=== PATIENT | female | born 1945 | race Caucasian/White ===

== ENCOUNTER 2016-11-12 01:42 | Observation (INO) | payer MEDICARE ==
--- NOTE | 2016-11-12 02:20 | ED ---
General Adult HPI - General Chief complaint: Syncope Stated complaint: Syncope Time Seen by Provider: 11/12/16 02:08 Source: patient, RN notes reviewed Mode of arrival: EMS Limitations: no limitations - History of Present Illness Initial comments: Patient is a pleasant 70-year-old female presenting to the emergency department following a syncopal episode. Episode occurred prior to arrival. Patient was dizzy when she got up from bed. Patient went to the bathroom to urinate. Patient believes she passed out while urinating. Patient states she's not felt well for the past several days. Patient has had some mild headaches. Patient has felt nauseated and fatigued. Patient has had diffuse body pains. Patient denies fever. Patient complains of anxiety. - Related Data Home Medications Medication Instructions Recorded Confirmed No Known Home Medications [No 11/12/16 11/12/16 Known Home Medications] Allergies Allergy/AdvReac Type Severity Reaction Status Date / Time No Known Allergies Allergy Verified 11/12/16 02:21 Review of Systems ROS Statement: Those systems with pertinent positive or pertinent negative responses have been documented in the HPI. ROS Other: All systems not noted in ROS Statement are negative. Constitutional: Denies: fever Eyes: Denies: eye pain ENT: Denies: ear pain Respiratory: Denies: cough, dyspnea Cardiovascular: Denies: chest pain, palpitations Endocrine: Reports: fatigue Gastrointestinal: Reports: nausea. Denies: abdominal pain, vomiting Genitourinary: Denies: dysuria Musculoskeletal: Denies: back pain Skin: Denies: rash Neurological: Reports: headache Psychiatric: Reports: anxiety Past Medical History Past Medical History: Seizure Disorder History of Any Multi-Drug Resistant Organisms: None Reported Past Surgical History: Hysterectomy Additional Past Surgical History / Comment(s): ganglion cyst left wrist Past Psychological History: No Psychological Hx Reported Smoking Status: Never smoker Past Alcohol Use History: None Reported Past Drug Use History: None Reported General Exam Limitations: no limitations General appearance: alert, in no apparent distress Head exam: Present: other (Right frontal ecchymosis) Eye exam: Present: normal appearance, PERRL, EOMI ENT exam: Present: normal oropharynx Neck exam: Present: tenderness (Mild diffuse tenderness) Respiratory exam: Present: normal lung sounds bilaterally Cardiovascular Exam: Present: regular rate, normal rhythm Expanded Peripheral pulses: 2+: Radial (R), Radial (L), Dorsalis Pedis (R), Dorsalis Pedis (L) GI/Abdominal exam: Present: soft. Absent: tenderness Extremities exam: Present: normal inspection, full ROM. Absent: tenderness Neurological exam: Present: alert, oriented X3, CN II-XII intact. Absent: motor sensory deficit Expanded Speech: Present: fluid speech Cranial nerves: EOM's Intact: Normal Sensory exam: Upper Extremity Light Touch: Normal, Lower Extremity Light Touch: Normal Motor strength exam: RUE: 5, LUE: 5, RLE: 5, LLE: 5 Eye Response: (4) open spontaneously Motor Response: (6) obeys commands Verbal Response: (5) oriented Psychiatric exam: Present: normal affect, normal mood Skin exam: Absent: rash Course Vital Signs 11/12/16 11/12/16 11/12/16 01:50 02:50 03:01 Temperature 98.8 F 98.7 F Pulse Rate 89 87 68 Respiratory 16 16 16 Rate Blood Pressure 152/76 136/64 117/61 O2 Sat by Pulse 99 98 97 Oximetry 11/12/16 11/12/16 04:01 05:45 Temperature Pulse Rate 75 75 Respiratory 16 16 Rate Blood Pressure 132/64 114/70 O2 Sat by Pulse 96 94 L Oximetry EKG Findings - EKG Comments: EKG Findings:: Normal sinus rhythm at 84. Normal intervals. Normal axis. Normal QRS. Normal ST-T. Medical Decision Making - Medical Decision Making Patient reevaluated and resting comfortably in bed. Patient and family updated on results and plan. Case was discussed in detail with practitioner Faith brown , who will admit for Dr. Palacios, for hospital call. - Lab Data Result diagrams: 11/12/16 02:07 11/12/16 05:43 Lab Results 11/12/16 11/12/16 11/12/16 Range/Units 02:07 02:25 05:43 WBC 4.3 (3.8-10.6) k/uL RBC 4.35 (3.80-5.40) m/uL Hgb 14.0 (11.4-16.0) gm/dL Hct 42.2 (34.0-46.0) % MCV 97.1 (80.0-100.0) fL MCH 32.1 (25.0-35.0) pg MCHC 33.1 (31.0-37.0) g/dL RDW 12.9 (11.5-15.5) % Plt Count 126 L (150-450) k/uL Neutrophils % (Manual) 72.0 % Lymphocytes % (Manual) 11.0 % Monocytes % (Manual) 16.0 % Eosinophils % (Manual) 1.0 % Neutrophils # (Manual) 3.1 (1.3-7.7) k/uL Lymphocytes # (Manual) 0.5 L (1.0-4.8) k/uL Monocytes # (Manual) 0.7 (0-1.0) k/uL Eosinophils # (Manual) 0.0 (0-0.7) k/uL Nucleated RBCs 0 (0-0) /100 WBC Manual Slide Review Performed PT 11.9 (9.0-12.0) sec INR 1.2 (<1.1) APTT 22.4 (22.0-30.0) sec Sodium (137-145) mmol/L Potassium (3.5-5.1) mmol/L Chloride (98-107) mmol/L Carbon Dioxide (22-30) mmol/L Anion Gap mmol/L BUN (7-17) mg/dL Creatinine (0.52-1.04) mg/dL Est GFR (MDRD) Af Amer (>60 ml/min/1.73 sqM) Est GFR (MDRD) Non-Af (>60 ml/min/1.73 sqM) Glucose (74-99) mg/dL POC Glucose (mg/dL) 166 H (75-99) mg/dL POC Glu Trash Man ID Pablo Hicks Calcium (8.4-10.2) mg/dL Magnesium (1.6-2.3) mg/dL Total Bilirubin (0.2-1.3) mg/dL AST (14-36) U/L ALT (9-52) U/L Alkaline Phosphatase (38-126) U/L Total Creatine Kinase (30-135) U/L CK-MB (CK-2) (0.0-2.4) ng/mL CK-MB (CK-2) Rel Index Troponin I (0.000-0.034) ng/mL Total Protein (6.3-8.2) g/dL Albumin (3.5-5.0) g/dL 11/12/16 11/12/16 Range/Units 05:43 05:43 WBC (3.8-10.6) k/uL RBC (3.80-5.40) m/uL Hgb (11.4-16.0) gm/dL Hct (34.0-46.0) % MCV (80.0-100.0) fL MCH (25.0-35.0) pg MCHC (31.0-37.0) g/dL RDW (11.5-15.5) % Plt Count (150-450) k/uL Neutrophils % (Manual) % Lymphocytes % (Manual) % Monocytes % (Manual) % Eosinophils % (Manual) % Neutrophils # (Manual) (1.3-7.7) k/uL Lymphocytes # (Manual) (1.0-4.8) k/uL Monocytes # (Manual) (0-1.0) k/uL Eosinophils # (Manual) (0-0.7) k/uL Nucleated RBCs (0-0) /100 WBC Manual Slide Review PT (9.0-12.0) sec INR (<1.1) APTT (22.0-30.0) sec Sodium 136 L (137-145) mmol/L Potassium 4.3 (3.5-5.1) mmol/L Chloride 103 (98-107) mmol/L Carbon Dioxide 25 (22-30) mmol/L Anion Gap 8 mmol/L BUN 12 (7-17) mg/dL Creatinine 0.70 (0.52-1.04) mg/dL Est GFR (MDRD) Af Amer >60 (>60 ml/min/1.73 sqM) Est GFR (MDRD) Non-Af >60 (>60 ml/min/1.73 sqM) Glucose 137 H (74-99) mg/dL POC Glucose (mg/dL) (75-99) mg/dL POC Glu Trash Man ID Calcium 9.3 (8.4-10.2) mg/dL Magnesium 1.9 (1.6-2.3) mg/dL Total Bilirubin 0.5 (0.2-1.3) mg/dL AST 22 (14-36) U/L ALT 33 (9-52) U/L Alkaline Phosphatase 76 (38-126) U/L Total Creatine Kinase 110 (30-135) U/L CK-MB (CK-2) 0.7 (0.0-2.4) ng/mL CK-MB (CK-2) Rel Index 0.6 Troponin I <0.012 (0.000-0.034) ng/mL Total Protein 6.9 (6.3-8.2) g/dL Albumin 3.8 (3.5-5.0) g/dL - Radiology Data Radiology results: image reviewed (Computed tomography scan of the brain and cervical spine show no acute findings. Two-view chest x-ray shows no acute process.) Disposition Clinical Impression: Syncope Disposition: ADMITTED IP TO THIS HOSP
[2016-11-12 02:28] LABS: Glucose,Whole Blood 166 mg/dL (75-99)
[2016-11-12 02:28] LABS: Aty Lym Flag Slight; CH 32.1; CHCM 33.2; HCT 42.2 % (34.0-46.0); HDW 2.24; MCH 32.1 pg (25.0-35.0); MCHC 33.1 g/dL (31.0-37.0); MCV 97.1 fL (80.0-100.0); Mean Platelet Volume 8.9; RBC 4.35 m/uL (3.80-5.40); RDW 12.9 % (11.5-15.5); WBC 4.3 k/uL (3.8-10.6); WBC (Perox) 4.56
[2016-11-12 02:43] LABS: Add Differential Manual Differential
[2016-11-12 02:46] LABS: Manual Review Performed; Nucleated Red Blood Cells 0 /100 WBC (0-0); Total Cells Counted 100
[2016-11-12] MEDS ORDERED: ONDANSETRON 4 MG/2 ML VIAL IVP STA (02:48)
--- NOTE | 2016-11-12 02:56 | CT ---
EXAM: CT Head Without Intravenous Contrast. CLINICAL HISTORY: Reason: syncope TECHNIQUE: Axial computed tomography images of the head/brain without intravenous contrast. CTDI is 60.3 mGy and DLP is 1144.7 mGy-cm COMPARISON: None FINDINGS: Brain: No evidence of acute infarct, hemorrhage, mass or edema. No significant white matter disease. Ventricles: Unremarkable. No ventriculomegaly. Bones/joints: Unremarkable. No acute fracture. Soft tissues: Unremarkable. Sinuses: Unremarkable as visualized. No acute sinusitis. Mastoid air cells: Unremarkable as visualized. No mastoid effusion. IMPRESSION: No acute findings. EXAM: CT Cervical Spine Without Intravenous Contrast. CLINICAL HISTORY: Reason: syncope TECHNIQUE: Axial computed tomography images of the cervical spine without intravenous contrast. CTDI is 60.3 mGy and DLP is 1144.7 mGy-cm COMPARISON: None FINDINGS: Vertebrae: No evidence of fracture or traumatic malalignment of the cervical spine. Discs/spinal canal/neural foramina: Multilevel degenerative changes with moderate bilateral neural frontal stenosis at C3-4, C4-5, and C5-6. Mild to moderate spinal canal stenosis at C4-5 and C5-6 secondary to spondylosis. Soft tissues: Unremarkable. Lung apices: Unremarkable as visualized. IMPRESSION: No acute findings.
--- NOTE | 2016-11-12 04:36 | XR ---
EXAM: XR Chest, 2 Views. CLINICAL HISTORY: Reason: syncope TECHNIQUE: Frontal and lateral views of the chest. COMPARISON: No relevant prior studies available. FINDINGS: Lungs: Unremarkable. No consolidation. Pleural space: Unremarkable. No pneumothorax. Heart: Mildly prominent cardiomediastinal silhouette. Mediastinum: See above. Bones/joints: Degenerative changes of the osseous structures. IMPRESSION: No acute findings.
[2016-11-12 05:58] LABS: INR 1.2 (<1.1); Partial Thromboplastin Time 22.4 sec (22.0-30.0); Prothrombin Time 11.9 sec (9.0-12.0)
[2016-11-12 06:02] LABS: ALT 33 U/L (9-52); AST 22 U/L (14-36); Alkaline Phosphatase 76 U/L (38-126); Anion Gap 8 mmol/L; Blood Urea Nitrogen 12 mg/dL (7-17); Calcium 9.3 mg/dL (8.4-10.2); Carbon Dioxide 25 mmol/L (22-30); Chloride 103 mmol/L (98-107); Glucose 137 mg/dL (74-99); Magnesium 1.9 mg/dL (1.6-2.3); Non-African American GFR(MDRD) >60 (>60 ml/min/1.73 sqM); Potassium 4.3 mmol/L (3.5-5.1); Sodium 136 mmol/L (137-145); Total Bilirubin 0.5 mg/dL (0.2-1.3); Total Protein 6.9 g/dL (6.3-8.2)
[2016-11-12 06:08] LABS: Creatine Kinase 110 U/L (30-135)
[2016-11-12 06:21] LABS: Creatine Kinase MB 0.7 ng/mL (0.0-2.4); Troponin I <0.012 ng/mL (0.000-0.034)
[2016-11-12] MEDS ORDERED: NALOXONE 0.4 MG/ML 1 ML VIAL IV PRN (06:34)
[2016-11-12 06:35] LABS: Appearance,Urine Clear (Clear); Bilirubin,Urine Negative (Negative); Glucose,Urine (UA) Negative (Negative); Ketones,Urine 2+ (Negative); Leukocyte Esterase,Urine Negative (Negative); Mucus,Urine Few /hpf; Nitrite,Urine Negative (Negative); PH, Urine 5.5 (5.0-8.0); Particle Count 4954; Protein,Urine 1+ (Negative); RBC,Urine 3 /hpf (0-5); Specific Gravity,Urine 1.014 (1.001-1.035); UA Billing (MACRO vs. MICRO) MICRO; Urobilinogen,Urine <2.0 mg/dL (<2.0); WBC,Urine 2 /hpf (0-5)
[2016-11-12] MEDS ORDERED: SODIUM CHLORIDE 0.9% 1,000 ML IV SCH ×2 (06:45→10:30)
--- NOTE | 2016-11-12 10:58 | ECHOF ---
Referral Reason:syncope MEASUREMENTS -------- HEIGHT: 165.1 cm WEIGHT: 72.6 kg BP: RVIDd: 2.4 cm (< 3.3) IVSd: 1.0 cm (0.6 - 1.1) LVIDd: 4.6 cm (3.9 - 5.3) LVPWd: 1.0 cm (0.6 - 1.1) IVSs: 1.2 cm LVIDs: 4.2 cm LVPWs: 1.5 cm LAESV Index (A-L): 35.77 ml/m Ao Diam: 2.9 cm (2.0 - 3.7) AV Cusp: 1.3 cm (1.5 - 2.6) LA Diam: 3.4 cm (2.7 - 3.8) MV EXCURSION: 20.347 mm (> 18.000) MV EF SLOPE: 79 mm/s (70 - 150) EPSS: 0.8 cm MV E Mani: 0.63 m/s MV DecT: 170 ms MV A Mani: 0.80 m/s MV E/A Ratio: 0.79 AV maxP.24 mmHg AV meanP.52 mmHg RAP: 5.00 mmHg RVSP: 25.96 mmHg FINDINGS -------- Sinus rhythm. This was a technically adequate study. There is mild concentric left ventricular hypertrophy. Overall left ventricular systolic function is low-normal with, an EF between 50 - 55 %. The right ventricle is normal in size. LA is severely dilated >40 ml/m2 The right atrial size is normal. Aneurysmal Interatrial septum. Possible PFO Peak/mean gradient across the Aortic Valve is 21.24mmHg / 9.52mmHg. Vegetation Noted on AOV. Isbt-al-xounzfih mitral regurgitation is present. Mild prolapse of the posterior mitral valve leaflet. Mild tricuspid regurgitation present. There is no evidence of pulmonary hypertension. The right ventricular systolic pressure, as measured by Doppler, is 25.96mmHg. There is no pulmonic regurgitation present. The aortic root size is normal. CONCLUSIONS -------- 1. There is mild concentric left ventricular hypertrophy. 2. Mild tricuspid regurgitation present. 3. There is no evidence of pulmonary hypertension. 4. The right ventricular systolic pressure, as measured by Doppler, is 25.96mmHg. 5. There is no pulmonic regurgitation present. 6. Overall left ventricular systolic function is low-normal with, an EF between 50 - 55 %. 7. LA is severely dilated >40 ml/m2 8. Aneurysmal Interatrial septum. 9. Possible PFO 10. Peak/mean gradient across the Aortic Valve is 21.24mmHg / 9.52mmHg. 11. Vegetation Noted on AOV. 12. Ljfq-xf-kxfvoldl mitral regurgitation is present. 13. Mild prolapse of the posterior mitral valve leaflet. DORMITORY SUPERVISOR: Kirstin Lovelace RDCS
--- NOTE | 2016-11-12 11:26 | CONS ---
DATE OF CONSULTATION: Mrs. Pina is a 70-year-old female who is seen for the cardiac evaluation. The emergency room records reviewed. Patient gives a history that she had not been feeling well for the last couple of days. She has been generally feeling weak and patient has been having some diffuse body pains. Patient woke up last night from the bed, went to the bathroom and while urinating she probably passed out. She did not have any nausea, vomiting or sweating. Patient denies any history of prior myocardial infarction. Patient denies any history of diabetes or hypertension. She is physically active. Past medical history includes history of hysterectomy, history of seizure disorder. Patient's medications include aspirin. Review of systems is otherwise unremarkable. In the emergency room, the patient's initial blood pressure was 152/76 mmHg. Patient was afebrile. Patient at present is comfortable and she is not in any acute distress. The blood pressure is 127/63 mmHg. Oxygen saturation is 94%. Head/ENT examination is negative. Neck is supple. There is no increase in jugular venous pressure. Both the carotid pulses are felt. There is no bruit. Chest is symmetrical. HEART: The PMI is not felt. First and second heart sounds are normal. There is no evidence of any murmur. Lungs are clinically clear to auscultation and percussion. Abdomen is soft. Liver and spleen are not enlarged. Bowel sounds are heard. EXTREMITIES: Peripheral pulsations are 2+. There is no evidence of any edema or phlebitis. Neurological examination is grossly normal. EKG shows normal sinus rhythm without any acute ischemic changes. Patient's electrolytes are normal. First troponin is 0.012. FINAL IMPRESSION: Syncope, most likely secondary to orthostatic hypotension and vasovagal syncope. Patient may have some underlying viral syndrome in view that she was not feeling weak. RECOMMENDATIONS: I will recommend to hydrate the patient. We will check the echocardiogram and monitor her for any significant arrhythmia. If the patient remains stable, she can be discharged home.
--- NOTE | 2016-11-12 11:47 | US ---
EXAMINATION TYPE: US carotid duplex BILAT DATE OF EXAM: 11/12/2016 11:25 AM COMPARISON: NONE CLINICAL HISTORY: syncope. EXAM MEASUREMENTS: RIGHT: Peak Systolic Velocity (PSV) cm/sec ----- Right CCA: 77.2 ----- Right ICA: 142.8 ----- Right ECA: 138.0 ICA/CCA ratio: 1.8 RIGHT: End Diastole cm/sec ----- Right CCA: 25.4 ----- Right ICA: 52.2 ----- Right ECA: 27.3 LEFT: Peak Systolic Velocity (PSV) cm/sec ----- Left CCA: 92.8 ----- Left ICA: 102.4 ----- Left ECA: 118.9 ICA/CCA ratio: 1.1 LEFT: End Diastole cm/sec ----- Left CCA: 31.9 ----- Left ICA: 36.1 ----- Left ECA: 24.8 VERTEBRALS (direction of flow): Right Vertebral: Antegrade Left Vertebral: Antegrade FINDINGS: No significant velocity elevations seen on left, mild plaque, slight velocity increase on right, moderate plaque. IMPRESSION: 1. Atherosclerotic changes with no significant hemodynamic stenosis.
[2016-11-12 11:48] VITALS: BP 127/61; RESP 16; TEMP 97.5
[2016-11-12 12:30] VITALS: PULSE 69
--- NOTE | 2016-11-12 20:03 | HP ---
DATE OF ADMISSION: This dictation is both H&P and discharge summary. Patient is a 70-year-old female who came in with syncopal episode. Patient felt dizzy and patient was complaining of cough with minimal sputum production, which is whitish in color and patient has ( ) and patient is found to have flu and patient ( ) orthostatic vitals. Unfortunately, the patient already had extensive evaluation for her syncope including ( ) and carotid Doppler, which are negative. Patient also evaluated by Cardiology. Patient is mildly dehydrated, ( ) episode with dizziness secondary to influenza. Patient was started on Tamiflu. Patient will be discharged on Tamiflu and will give her IV fluid at 250 mL/h for a couple of hours. Patient was encouraged to drink fluids at home. Patient symptoms started a couple of days ago. ( ) no benefit of Tamiflu. Anyway, patient will be given that prescription and patient denies any fever. Although she appears to have low grade fever here. REVIEW OF SYSTEMS: GENERAL: As described in HPI. HEENT: No recent visual problems or hearing problems. Denied any sore throat. CARDIOVASCULAR: No chest pain, orthopnea, PND, no palpitations, no syncope. PULMONARY: No shortness of breath, no cough, no hemoptysis. GASTROINTESTINAL: No diarrhea, no nausea, no vomiting, no abdominal pain. Normoactive bowel sounds. NEUROLOGICAL: No headaches, no weakness, no numbness. HEMATOLOGICAL: Denies any bleeding or petechiae. GENITOURINARY: Denies any burning micturition, frequency, or urgency. MUSCULOSKELETAL/RHEUMATOLOGICAL: Denies any joint pain, swelling, or any muscle pain. ENDOCRINE: Denies any polyuria or polydipsia. The rest of the 14 point review of systems is negative. PAST MEDICAL HISTORY: Significant for seizure disorder, hysterectomy. SOCIAL HISTORY: Denied any smoking or alcohol abuse or drug abuse. FAMILY HISTORY: Denied any history of hypertension, diabetes mellitus or coronary artery disease in the family. PHYSICAL EXAMINATION: VITAL SIGNS: Temperature 98.8, pulse of 68, respiratory rate 16, blood pressure 117/61, saturating at 97% on room air. GENERAL: The patient is alert and oriented x3, not in any acute distress. Well developed, well nourished. HEENT: Pupils are round and equally reacting to light. EOMI. No scleral icterus. No conjunctival pallor. Normocephalic, atraumatic. No pharyngeal erythema. No thyromegaly. CARDIOVASCULAR: S1 and S2 present. No murmurs, rubs, or gallops. PULMONARY: Chest is clear to auscultation, no wheezing or crackles. ABDOMEN: Soft, nontender, nondistended, normoactive bowel sounds. No palpable organomegaly. MUSCULOSKELETAL: No joint swelling or deformity. EXTREMITIES: No cyanosis, clubbing, or pedal edema. NEUROLOGICAL: Gross neurological examination did not reveal any focal deficits. SKIN: No rashes. LABORATORY DATA: No significant abnormality was appreciated. ASSESSMENT AND PLAN: 1. Syncopal episode secondary to intravascular volume depletion and dehydration, possibly from flu. Patient received IV fluids and will be discharged. 2. Possibly influenza causing URI-like symptoms. Tamiflu upon discharge. This dictation is both H&P and discharge summary. The patient will follow with primary care physician. Activity as tolerated. Regular diet. Neurology consult will be discontinued.
[2016-11-12] MEDS ORDERED: OSELTAMIVIR 75 MG CAP PO SCH (21:00)
== END 2016-11-12 18:15 | disposition home or self-care (01) ==
LOC: EC 01:42 → 6SEL 06:34 → INTOOBSV 06:34 → 3OBS 08:57
PROVIDERS: ADMIT Hospitalist; ATTEND Hospitalist
DX: E86.0 Dehydration (principal); R55 Syncope and collapse; R51 Headache; R11.0 Nausea
CPT/HCPCS: 36415; 93005; 93306; 80053; 82550; 82553; 83735; 84484; 85025; 85610; 85730; 81001; 87502; 71020; 93880; 72125; 70450; 99285; 96374; G0378; J2405

== ENCOUNTER → 2019-02-23 | Outpatient (CLI) | payer MEDICARE ==
[2019-02-23 16:35] LABS: LDL Cholesterol,Calculated 151.8 mg/dL (0.0-131.0); VLDL Calculation 16.2 mg/dL (5.00-40.00)
== END | disposition home or self-care (01) ==
LOC: LABWHC1 09:59
PROVIDERS: ATTEND Internal Medicine Cardiovascular Disease
DX: E78.5 Hyperlipidemia, unspecified (principal)
CPT/HCPCS: 36415; 80061; 83704

== ENCOUNTER → 2021-08-26 | Outpatient (CLI) | payer MEDICARE ==
--- NOTE | 2021-08-26 09:58 | MR ---
EXAMINATION TYPE: MR brain and iac wo/w con DATE OF EXAM: 08/26/2021 9:52 AM COMPARISON: NONE HISTORY: Hearing loss TECHNIQUE: Multiplanar and multispin-echo imaging of the brain was performed both before and after the administr ation of contrast. High-resolution images are obtained of the internal auditory canals performed uti lizing 6.5 mL intravenous Gadavist contrast. The ventricles, basal cisterns and sulci overlying the cerebral convexities are within normal limits for the patient's age. There is no evidence for midline shift or mass effect. Acute intracranial hemorrhage or extra-axial collection is not evident. There are no abnormal areas of increased or decreased signal intensity within the brain parenchyma. High-resolution imaging of the internal auditory canals fails demonstrate evidence for an enhancing a coustic schwannoma or cerebellopontine cistern angle mass. Following contrast administration, there is no evidence for pathologic enhancement or enhancing mass. 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 The paranasal sinuses and mastoid air cells are well-aerated. IMPRESSION: 1. No evidence of acoustic schwannoma or cerebellopontine angle mass.
== END | disposition home or self-care (01) ==
LOC: RADMRIMAIN 08:19
PROVIDERS: ATTEND Otolaryngology
DX: H91.90 Unspecified hearing loss, unspecified ear (principal); R26.89 Other abnormalities of gait and mobility
CPT/HCPCS: 70553; A9585

== ENCOUNTER 2023-01-27 23:11 | Inpatient (IN) | payer MEDICARE ==
[2023-01-27] MEDS ORDERED: SODIUM CHLORIDE 0.9% 1,000 ML IV ONE (23:18)
--- NOTE | 2023-01-27 23:35 | XR ---
EXAMINATION TYPE: XR chest 1V portable DATE OF EXAM: 01/27/2023 11:29 PM COMPARISON: Chest radiographs from 11/12/2016 TECHNIQUE: XR chest 1V portable Portable AP radiograph of the chest. CLINICAL INDICATION:Female, 77 years old with history of Chest pain; FINDINGS: Lungs/Pleura: There is no evidence of pleural effusion, focal consolidation, or pneumothorax. Senesc ent parenchymal change. Pulmonary vascularity: Unremarkable. Heart/mediastinum: Cardiomediastinal silhouette is enlarged. Atherosclerotic calcifications are seen in the aorta. Musculoskeletal: No acute osseous pathology. IMPRESSION: 1. No radiographic evidence of an acute process. 2. Persistent cardiomegaly.
[2023-01-28 00:23] LABS: Basophils % (A) 0 %; Eosinophils # (A) 0.3 k/uL (0-0.7); Eosinophils % (A) 4 %; HCT 41.4 % (34.0-46.0); HGB 13.8 gm/dL (11.4-16.0); Lymphocytes # (A) 1.7 k/uL (1.0-4.8); Lymphocytes % (A) 22 %; MCH 32.1 pg (25.0-35.0); MCHC 33.2 g/dL (31.0-37.0); MCV 96.6 fL (80.0-100.0); Monocytes # (A) 0.5 k/uL (0-1.0); Monocytes % (A) 6 %; Neutrophils # (A) 4.7 k/uL (1.3-7.7); Neutrophils % (A) 63 %; Platelet Count 181 k/uL (150-450); RBC 4.29 m/uL (3.80-5.40); RDW 12.7 % (11.5-15.5); WBC 7.5 k/uL (3.8-10.6)
[2023-01-28 00:35] LABS: ALT 16 U/L (4-34); AST 27 U/L (14-36); African American GFR (CKD) >90 (>60 ml/min/1.73 sqM); Albumin 3.8 g/dL (3.5-5.0); Alkaline Phosphatase 86 U/L (38-126); Anion Gap 8 mmol/L; Blood Urea Nitrogen 22 mg/dL (7-17); Carbon Dioxide 24 mmol/L (22-30); Chloride 102 mmol/L (98-107); Glucose 168 mg/dL (74-99); Lipase 142 U/L (23-300); Magnesium 1.9 mg/dL (1.6-2.3); Non-African American GFR(CKD) 85 (>60 ml/min/1.73 sqM); Potassium 3.5 mmol/L (3.5-5.1); Sodium 134 mmol/L (137-145); Total Bilirubin 0.5 mg/dL (0.2-1.3); Total Protein 7.1 g/dL (6.3-8.2)
[2023-01-28 00:44] LABS: Partial Thromboplastin Time 21.3 sec (22.0-30.0); Prothrombin Time 10.3 sec (9.0-12.0)
--- NOTE | 2023-01-28 01:59 | ED ---
General Adult HPI - General Chief complaint: Chest Pain Stated complaint: Stemi Time Seen by Provider: 01/27/23 23:17 Source: patient, EMS Mode of arrival: EMS Limitations: no limitations - History of Present Illness Initial comments: This is a 77-year-old female with a past medical history including hypertension presents emergency department via EMS for chest pain and bilateral arm pain. The patient stated that she had chest pain and bilateral arm pain that his been persistent over last several hours and had intermittently caused her pain over the last several days. When EMS arrived, the patient was noted to have significantly elevated blood pressure and central chest pain. The patient was brought in for further evaluation. The patient did state that she had continued chest pain but stated that she thought it was because she was working outside in the heat. The patient was diaphoretic and nauseous on arrival. The patient stated that she hasn't had similar episodes in the past several days but they spontaneously resolved. The patient denied any other acute pain or complaints at this time. The patient denied any lightheadedness or dizziness as well as any fevers or chills. - Related Data Home Medications Medication Instructions Recorded Confirmed Aspirin 81 mg PO DAILY 11/12/16 11/12/16 Previous Rx's Medication Instructions Recorded Oseltamivir [Tamiflu] 75 mg PO Q12HR #10 cap 11/12/16 Allergies Allergy/AdvReac Type Severity Reaction Status Date / Time No Known Allergies Allergy Verified 11/12/16 07:23 Review of Systems ROS Statement: Those systems with pertinent positive or pertinent negative responses have been documented in the HPI. ROS Other: All systems not noted in ROS Statement are negative. Past Medical History Past Medical History: Osteoarthritis (OA), Seizure Disorder Additional Past Medical History / Comment(s): Pt states last seizure was about 5 yrs ago. History of Any Multi-Drug Resistant Organisms: None Reported Past Surgical History: Hysterectomy Additional Past Surgical History / Comment(s): ganglion cyst left wrist Past Anesthesia/Blood Transfusion Reactions: Postoperative Nausea & Vomiting (PONV) Past Psychological History: Anxiety, Depression Past Alcohol Use History: None Reported Past Drug Use History: None Reported - Past Family History Mother Family Medical History: Dementia Additional Family Medical History / Comment(s): Mother of dementia at the age of 86yrs. Father Family Medical History: Myocardial Infarction (DC) Additional Family Medical History / Comment(s): Father had CABG. He had a DC when he was about 40yrs old. General Exam Limitations: no limitations General appearance: alert, in no apparent distress Head exam: Present: atraumatic, normocephalic, normal inspection Eye exam: Present: normal appearance, PERRL Pupils: Present: normal accommodation ENT exam: Present: normal exam, normal oropharynx, mucous membranes moist Neck exam: Present: normal inspection, full ROM Respiratory exam: Present: normal lung sounds bilaterally Cardiovascular Exam: Present: regular rate, normal rhythm, normal heart sounds GI/Abdominal exam: Present: soft, normal bowel sounds Extremities exam: Present: normal inspection, full ROM Back exam: Present: normal inspection, full ROM Neurological exam: Present: alert, oriented X3, CN II-XII intact Psychiatric exam: Present: normal affect, normal mood Skin exam: Present: warm, dry Course Vital Signs 01/27/23 01/27/23 01/28/23 23:12 23:33 01:54 Temperature 98.8 F Pulse Rate 85 64 71 Respiratory 20 22 12 Rate Blood Pressure 107/69 136/74 134/87 O2 Sat by Pulse 96 99 94 L Oximetry EKG Findings - EKG Comments: EKG Findings:: An EKG was obtained and was interpreted by myself showing a rate of 70, IA interval of 210, QRS duration of 108 and QTC of 420. This EKG showed a normal sinus rhythm with a first-degree AV block. There was however no significant ST segment elevations or depressions noted. Medical Decision Making - Medical Decision Making Was pt. sent in by a medical professional or institution (, PA, NETWORK SUPPORT MANAGER, urgent care, hospital, or jail...) When possible be specific @ -No Did you speak to anyone other than the patient for history (EMS, parent, family, police, friend...)? What history was obtained from this source @ -No Did you review nursing and triage notes (agree or disagree)? Why? @ -I reviewed and agree with nursing and triage notes Were old charts reviewed (outside hosp., previous admission, EMS record, old EKG, old radiological studies, urgent care reports/EKG's, jail records)? Report findings @ -No old charts were reviewed Differential Diagnosis (chest pain, altered mental status, abdominal pain women, abdominal pain men, vaginal bleeding, weakness, fever, dyspnea, syncope, head ache, dizziness, GI bleed, back pain, seizure, CVA, palpatations, mental health)? @ -ACS, pneumonia, pneumothorax EKG interpreted by me (3pts min.). @ -As above X-rays interpreted by me (1pt min.). @ -Chest x-ray was obtained and was interpreted by myself showing no evidence of acute disease but there was persistent cardiomegaly. CT interpreted by me (1pt min.). @ -CTA of the chest was obtained and was interpreted by myself showing no PE. There is no thoracic aortic injury or dissection. U/S interpreted by me (1pt. min.). @ -None done What testing was considered but not performed or refused? (CT, X-rays, U/S, labs)? Why? @ -None What meds were considered but not given or refused? Why? @ -None Did you discuss the management of the patient with other professionals (professionals i.e. DrSanjuana, PA, NETWORK SUPPORT MANAGER, lab, RT, psych nurse, vp digital marketing social media and crm, recruitment intern, teacher, u.s. revenue officer, renal case manager)? Give summary @ -Yes, admitting physician was contacted regarding patient admission. Was smoking cessation discussed for >3mins.? @ -No Was critical care preformed (if so, how long)? @ -Yes, see above Were there social determinants of health that impacted care today? How? (Homelessness, low income, unemployed, alcoholism, drug addiction, transportation, low edu. Level, literacy, decrease access to med. care, shelter, rehab)? @ -No Was there de-escalation of care discussed even if they declined (Discuss DNR or withdrawal of care, Hospice)? DNR status @ -No What co-morbidities impacted this encounter? (DM, HTN, Smoking, COPD, CAD, Cancer, CVA, ARF, Chemo, Hep., AIDS, mental health diagnosis, sleep apnea, morbid obesity)? @ -Hypertension Was patient admitted / discharged? Hospital course, mention meds given and route, prescriptions, significant lab abnormalities, going to OR and other pertinent info. @ -The patient was seen and evaluated emergency department. Initially prior to the patient's arrival, the patient did have a concerning. Arrival EKG. Because of this, the patient was seen in medical resuscitation bay and repeat EKG was obtained initially on arrival. This EKG did not show any signs for a STEMI. The patient did have vital signs that were stable and the patient con tinued to complain of central chest pain and bilateral arm pain. Laboratory workup was obtained and was largely within normal limits. Chest x-ray was negative. D-dimer was elevated therefore CT of the chest was obtained and was negative for PE. Due to the patient's continued central chest pain and episode of intermittent diaphoresis which she had for a few seconds on arrival, the patient will be placed observation for further workup and evaluation by cardiology. The patient was agreeable to this plan and was placed observation in stable condition. Undiagnosed new problem with uncertain prognosis? @ -No Drug Therapy requiring intensive monitoring for toxicity (Heparin, Nitro, Insulin, Cardizem)? @ -No Were any procedures done? @ -No Diagnosis/symptom? @ -Chest pain, rule out ACS Acute, or Chronic, or Acute on Chronic? @ -Acute Uncomplicated (without systemic symptoms) or Complicated (systemic symptoms)? @ -Complicated Side effects of treatment? @ -No Exacerbation, Progression, or Severe Exacerbation? @ -No Poses a threat to life or bodily function? How? (Chest pain, USA, DC, pneumonia, PE, COPD, DKA, ARF, appy, cholecystitis, CVA, Diverticulitis, Homicidal, Suicidal, threat to staff... and all critical care pts) @ -Yes, ACS can lead to permanent damage and possible . - Lab Data Result diagrams: 01/27/23 23:20 01/27/23 23:20 Lab Results 01/27/23 01/27/23 01/27/23 Range/Units 23:20 23:20 23:20 WBC 7.5 (3.8-10.6) k/uL RBC 4.29 (3.80-5.40) m/uL Hgb 13.8 (11.4-16.0) gm/dL Hct 41.4 (34.0-46.0) % MCV 96.6 (80.0-100.0) fL MCH 32.1 (25.0-35.0) pg MCHC 33.2 (31.0-37.0) g/dL RDW 12.7 (11.5-15.5) % Plt Count 181 (150-450) k/uL MPV 9.0 Neutrophils % 63 % Lymphocytes % 22 % Monocytes % 6 % Eosinophils % 4 % Basophils % 0 % Neutrophils # 4.7 (1.3-7.7) k/uL Lymphocytes # 1.7 (1.0-4.8) k/uL Monocytes # 0.5 (0-1.0) k/uL Eosinophils # 0.3 (0-0.7) k/uL Basophils # 0.0 (0-0.2) k/uL PT 10.3 (9.0-12.0) sec INR 1.0 (<1.2) APTT 21.3 L (22.0-30.0) sec D-Dimer 1.01 H (<0.60) mg/L FEU Sodium 134 L (137-145) mmol/L Potassium 3.5 (3.5-5.1) mmol/L Chloride 102 (98-107) mmol/L Carbon Dioxide 24 (22-30) mmol/L Anion Gap 8 mmol/L BUN 22 H (7-17) mg/dL Creatinine 0.69 (0.52-1.04) mg/dL Est GFR (CKD-EPI)AfAm >90 (>60 ml/min/1.73 sqM) Est GFR (CKD-EPI)NonAf 85 (>60 ml/min/1.73 sqM) Glucose 168 H (74-99) mg/dL Calcium 10.0 (8.4-10.2) mg/dL Magnesium 1.9 (1.6-2.3) mg/dL Total Bilirubin 0.5 (0.2-1.3) mg/dL AST 27 (14-36) U/L ALT 16 (4-34) U/L Alkaline Phosphatase 86 (38-126) U/L Troponin I (0.000-0.034) ng/mL NT-Pro-B Natriuret Pep pg/mL Total Protein 7.1 (6.3-8.2) g/dL Albumin 3.8 (3.5-5.0) g/dL Lipase 142 (23-300) U/L 01/27/23 01/27/23 Range/Units 23:20 23:20 WBC (3.8-10.6) k/uL RBC (3.80-5.40) m/uL Hgb (11.4-16.0) gm/dL Hct (34.0-46.0) % MCV (80.0-100.0) fL MCH (25.0-35.0) pg MCHC (31.0-37.0) g/dL RDW (11.5-15.5) % Plt Count (150-450) k/uL MPV Neutrophils % % Lymphocytes % % Monocytes % % Eosinophils % % Basophils % % Neutrophils # (1.3-7.7) k/uL Lymphocytes # (1.0-4.8) k/uL Monocytes # (0-1.0) k/uL Eosinophils # (0-0.7) k/uL Basophils # (0-0.2) k/uL PT (9.0-12.0) sec INR (<1.2) APTT (22.0-30.0) sec D-Dimer (<0.60) mg/L FEU Sodium (137-145) mmol/L Potassium (3.5-5.1) mmol/L Chloride (98-107) mmol/L Carbon Dioxide (22-30) mmol/L Anion Gap mmol/L BUN (7-17) mg/dL Creatinine (0.52-1.04) mg/dL Est GFR (CKD-EPI)AfAm (>60 ml/min/1.73 sqM) Est GFR (CKD-EPI)NonAf (>60 ml/min/1.73 sqM) Glucose (74-99) mg/dL Calcium (8.4-10.2) mg/dL Magnesium (1.6-2.3) mg/dL Total Bilirubin (0.2-1.3) mg/dL AST (14-36) U/L ALT (4-34) U/L Alkaline Phosphatase (38-126) U/L Troponin I <0.012 (0.000-0.034) ng/mL NT-Pro-B Natriuret Pep 241 pg/mL Total Protein (6.3-8.2) g/dL Albumin (3.5-5.0) g/dL Lipase (23-300) U/L Critical Care Time Critical Care Time: Yes Total Critical Care Time: 32 Disposition Clinical Impression: Chest pain Disposition: [facility] Condition: Stable Instructions (If sedation given, give patient instructions): Chest Pain (ED) Is patient prescribed a controlled substance at d/c from ED?: No Referrals: Barber Roman MD [Primary Care Provider] - 1-2 days Time of Disposition: 01:30 Decision to Admit Reason: Admit from EC Decision Date: 01/28/23 Decision Time: 01:30
--- NOTE | 2023-01-28 02:29 | CT ---
EXAM: CT Angiography Chest With Intravenous Contrast CLINICAL HISTORY: SOB, r/o PE TECHNIQUE: Axial computed tomographic angiography images of the chest with intravenous contrast. CTDI is 15.57 mGy and DLP is 271.3 mGy-cm. This CT exam was performed using one or more of the following dose reduction techniques: automated exposure control, adjustment of the mA and/or kV according to patient size, and/or use of iterative reconstruction technique. MIP reconstructed images were created and reviewed. Coronal and sagittal reformatted images were created and reviewed. 674 images COMPARISON: No relevant prior studies available. FINDINGS: Pulmonary arteries: Unremarkable. No pulmonary embolism. Aorta: No acute findings. No thoracic aortic aneurysm. Lungs: Small amount of patchy groundglass opacities scattered in both lungs. Diffuse septal thickening. Pleural space: Unremarkable. No significant effusion. No pneumothorax. Heart: Mild cardiomegaly. No significant pericardial effusion. No evidence of RV dysfunction. Bones/joints: Osteopenia. Mild degenerative changes. No acute fracture. No dislocation. Soft tissues: Unremarkable. Lymph nodes: Unremarkable. No enlarged lymph nodes. Kidneys and ureters: Small left renal cysts. IMPRESSION: 1. No pulmonary embolism. No thoracic aortic injury or dissection. 2. Lung findings can be due to underinflation versus mild pulmonary edema.
[2023-01-28] MEDS ORDERED: ONDANSETRON 4 MG/2 ML VIAL IVP STA (02:40)
[2023-01-28] MEDS ORDERED: NALOXONE 0.4 MG/ML 1 ML VIAL IV PRN (02:44)
--- NOTE | 2023-01-28 04:59 | P.HPIM ---
History of Present Illness H&P Date: 01/28/23 Chief Complaint: back pain and arm spasm 77 year old female with hypertension she comes in today by EMS concerned regarding a heart attack. she was not feeling well in the evening , after working all day outside doing yard work, she did not feel like eating dinner, and only had a bowl of cereal. after which while she was resting in her bedroom. she noticed back pain , radiating to the jaws, and shoulders. and causing bilateral arm spasm , this lasted for about an hour before she decided to come in for evaluation and called EMS. she denies any associated nausea, vomiting, dizziness, SOB. she also reports balance issues and ringing noise in her right ear that has been going on for about 1.5 years for which she follows OP with neurology denies any cardiac history , she did have negative stress test 1.5 years ago she denies any smoking , illicit drugs or alcohol she does have a valve problem , and is really concerned about having a heart attack Review of Systems Pertinent positives as noted in HPI. All other systems were reviewed and are negative Past Medical History Past Medical History: Osteoarthritis (OA), Seizure Disorder Additional Past Medical History / Comment(s): Pt states last seizure was about 5 yrs ago. History of Any Multi-Drug Resistant Organisms: None Reported Past Surgical History: Hysterectomy Additional Past Surgical History / Comment(s): ganglion cyst left wrist Past Anesthesia/Blood Transfusion Reactions: Postoperative Nausea & Vomiting (PONV) Past Psychological History: Anxiety, Depression Additional Psychological History / Comment(s): Pt resides with spouse of 50yrs in [place]. They moved here from [place] about 1 yr ago. Pt uses no assistive device. Pt drives. Pt states she and her spouse have been depresssed due to their daughter's unexpected a year ago. Pt states she is not suicidal and no thoughts of harming self and does not wish she was . Smoking Status: Never smoker Past Alcohol Use History: None Reported Past Drug Use History: None Reported - Past Family History Mother Family Medical History: Dementia Additional Family Medical History / Comment(s): Mother of dementia at the age of 86yrs. Father Family Medical History: Myocardial Infarction (PR) Additional Family Medical History / Comment(s): Father had CABG. He had a PR when he was about 40yrs old. Medications and Allergies Home Medications Medication Instructions Recorded Confirmed Type Aspirin 81 mg PO DAILY 11/12/16 11/12/16 History Oseltamivir [Tamiflu] 75 mg PO Q12HR #10 cap 11/12/16 Rx Allergies Allergy/AdvReac Type Severity Reaction Status Date / Time No Known Allergies Allergy Verified 11/12/16 07:23 Physical Exam Vitals: Vital Signs Temp Pulse Pulse Resp BP BP Pulse Ox 01/28/23 04:05 98.2 F 87 18 155/83 95 01/28/23 01:54 71 12 134/87 94 L 01/27/23 23:33 64 22 136/74 99 01/27/23 23:12 98.8 F 85 20 107/69 96 Intake and Output 01/27/23 01/27/23 01/28/23 14:59 22:59 06:59 Other: Weight 70.307 kg Constitutional: No acute distress, conversant, pleasant Eyes: Anicteric sclerae, moist conjunctiva, Pupils equal round reactive to light ENMT: NC/AT Oropharynx clear, no erythema, or exudates Neck: Supple, no masses, or JVD No carotid bruits No thyromegaly Lungs: Clear to auscultation Clear to percussion Normal respiratory effort, no accessory muscle use Cardiovascular: Heart regular in rate and rhythm, systolic murmurs, no gallops, or rubs No peripheral edema Abdominal: Soft Nontender, no guarding, rebound or rigidity Abdomen moving with respiration Normoactive bowel sounds No hepatomegaly, No splenomegaly No palpable mass No abdominal wall hernia noted Skin: Normal temperature, tone, texture, turgor No induration No subcutaneous nodules No rash, lesions No ulcers Extremities: No digital cyanosis No clubbing Pedal pulses intact and symmetrical Radial pulses intact and symmetrical No calf tenderness Psychiatric: Alert and oriented to person, place and time Appropriate affect fair judgement Neuro Muscles Strength 5/5 in all 4 extremities Sensation to light touch grossly present throughout Cranial nerves II-XII grossly intact Lymphatics: no palpable cervical or supraclavicular lymph nodes Results CBC & Chem 7: 01/27/23 23:20 01/27/23 23:20 Labs: Abnormal Lab Results - Last 24 Hours (Table) 01/27/23 01/27/23 Range/Units 23:20 23:20 APTT 21.3 L (22.0-30.0) sec D-Dimer 1.01 H (<0.60) mg/L FEU Sodium 134 L (137-145) mmol/L BUN 22 H (7-17) mg/dL Glucose 168 H (74-99) mg/dL Thrombosis Risk Factor Assmnt - Choose All That Apply Any of the Below Risk Factors Present?: No Other Risk Factors: Yes Each Risk Factor Represents 3 Points: Age 75 years or older Other congenital or acquired thrombophilia - If yes, enter type in comment: No Thrombosis Risk Factor Assessment Total Risk Factor Score: 3 Thrombosis Risk Factor Assessment Level: Moderate Risk Assessment and Plan Assessment: 77 year old female coming in with concerns regarding a heart attack, I discussed the case with ED doc, and I accepted the admission for cardiac workup to rule out ACS with anticipated length of stay < 2 midnights back pain radiating to the jaw and arms , rule out ACS, atypical presentation troponins negative , continue to trend EKG no acute ST changes monitor vital signs library monitor Aspirin 81 mg daily po check lipid panel , check TSH cardiology consult hypertension , untreated start patient on amlodipine 5 mg po daily renal function unremarkable , BUN 22 cr 0.69 Na 134 , K 3.5 D dimer elevated , CTA of the chest negative for acute PE Hgb unremarkable with 13.8 full code DVT PPX heparin sc tid
[2023-01-28] MEDS ORDERED: HEPARIN SODIUM 1,000 UN/ML (10ML VL) IV ONE (07:37)
[2023-01-28] MEDS ORDERED: HEPARIN SODIUM 1,000 UN/ML (10ML VL) IV PRN (07:37)
[2023-01-28] MEDS ORDERED: ASPIRIN 81 MG PO STA (07:38)
[2023-01-28] MEDS: HEPARIN SOD,PORK IN 0.45% NACL 25,000 UNIT in 0.45% NACL 1 250ML.BAG IV SCH (08:24)
[2023-01-28] MEDS: ATORVASTATIN 40 MG TAB PO SCH ×2 (08:28→08:52)
[2023-01-28] MEDS: amLODIPine 5 MG TAB PO SCH (08:28)
[2023-01-28 08:49] LABS: Chol/HDL Ratio 3.54 Ratio; LDL Cholesterol,Calculated 147.8 mg/dL (0.0-131.0); VLDL Calculation 11.42 mg/dL (5.00-40.00)
[2023-01-28] MEDS ORDERED: ASPIRIN 81 MG PO SCH (09:00)
[2023-01-28 09:11] LABS: Partial Thromboplastin Time 22.5 sec (22.0-30.0); Prothrombin Time 10.6 sec (9.0-12.0)
--- NOTE | 2023-01-28 09:22 | CONS ---
CONSULTATION CHIEF COMPLAINT: Chest pain. HISTORY OF PRESENT ILLNESS: Carol is a 77-year-old lady with history of aortic stenosis who presented to hospital with intermittent episodes of palpitations and chest pain. She describes it as a chest pressure in the interscapular area that radiated to her jaws and bilateral arms. At the time of my evaluation, she appears comfortable at rest. EKG showed sinus rhythm with ST-T wave changes of subendocardial ischemia. Troponins first set was normal, 2nd set is elevated at 0.7, hemoglobin is normal. Creatinine is normal. The patient has history of aortic stenosis. A CT chest on this admission was negative for pulmonary embolism. Given the acute [id number] elevation CO, I am advising the patient to undergo cardiac catheterization for further evaluation. I have explained risks, benefits, and alternatives, understood and accepted. I will obtain a 2D echo to assess her LV function and wall motion and to assess the underlying valvular heart disease. PAST MEDICAL HISTORY: Significant for hypertension and valvular heart disease. CURRENT MEDICATIONS: Include aspirin and Tamiflu. ALLERGIES: There are no known drug allergies. FAMILY HISTORY: Negative for premature coronary artery disease. SOCIAL HISTORY: Negative for current smoking, EtOH abuse, or drug abuse. REVIEW OF SYSTEMS: HEENT: Unremarkable. CARDIAC: As described above. RESPIRATORY: Negative. GI: Negative. GENITOURINARY: Negative. ALLERGY/IMMUNOLOGY: Negative. SKIN: Negative. MUSCULOSKELETAL: Significant for arthritis. PSYCHOSOCIAL: Negative. DERM: Negative. CONSTITUTIONAL: Negative. ONCOLOGICAL: Negative. ACCOUNTING GENERALIST: Negative. Rest of the system review is not relevant. PHYSICAL EXAMINATION: GENERAL: Comfortable at rest. VITAL SIGNS: Stable. NECK: There is no jugular venous distention. Carotid upstroke is normal. There is no bruit. CHEST: Reveals good air entry bilaterally. HEART: Reveals first and second heart sounds and a grade 3/6 ejection systolic murmur in the aortic area that radiates to her carotids. ABDOMEN: Soft. EXTREMITIES: Did not reveal any edema. Peripheral pulses are felt. LABORATORY DATA: Show that the troponin is elevated at 0.7, potassium is 3.5, creatinine is 0.6, hemoglobin is 13.8, and the platelet count is 180. ASSESSMENT: 1. Acute zox-AP-kxwwyke elevation CO. 2. Aortic stenosis. PLAN: I advised the patient to undergo cardiac catheterization. I will check an echocardiogram on her to evaluate her LV function and to rule out valvular heart disease. MMODL / IJN: [id number] /
[2023-01-28 09:26] LABS: HCT 41.1 % (34.0-46.0); HGB 13.2 gm/dL (11.4-16.0); MCH 31.3 pg (25.0-35.0); MCHC 32.1 g/dL (31.0-37.0); MCV 97.5 fL (80.0-100.0); Mean Platelet Volume 8.8; Platelet Count 154 k/uL (150-450); RBC 4.22 m/uL (3.80-5.40); RDW 13.1 % (11.5-15.5)
--- NOTE | 2023-01-28 09:58 | CA ---
Transthoracic Echo Report Name: Carol Pina Age: 77 Gender: F : 1945 Exam Date: 01/28/2023 08:16 Exam Location: [facility] Ht (in): 67 Wt (lb): 155 Ordering Physician: Walt Mota MD ([id number]) Attending/Referring Phys: Svetlana CARDENAS Medical Liaison Micheline Genao RDCS Procedure CPT: Indications: nstemi Cardiac Hx: Technical Quality: Good Contrast 1: Total Dose (mL): Contrast 2: Total Dose (mL): MEASUREMENTS (Male / Female) Normal Values 2D ECHO LV Diastolic Diameter PLAX 5.2 cm 4.2 - 5.9 / 3.9 - 5.3 cm LV Systolic Diameter PLAX 3.7 cm IVS Diastolic Thickness 1.0 cm 0.6 - 1.0 / 0.6 - 0.9 cm LVPW Diastolic Thickness 0.9 cm 0.6 - 1.0 / 0.6 - 0.9 cm LV Relative Wall Thickness 0.4 RV Internal Dim ED PLAX 2.4 cm LVOT Diameter 2.1 cm LA Systolic Diameter LX 3.5 cm 3.0 - 4.0 / 2.7 - 3.8 cm LV Diastolic Volume MOD 4C 89.2 cm??? LV Systolic Volume MOD 4C 46.2 cm??? LV Ejection Fraction MOD 4C 48.2 % LV Diastolic Length 4C 7.3 cm LV Systolic Length 4C 6.2 cm LV Diastolic Volume MOD 2C 59.8 cm??? LV Systolic Volume MOD 2C 37.8 cm??? LV Ejection Fraction MOD 2C 36.8 % LV Diastolic Length 2C 7.9 cm LV Systolic Length 2C 6.5 cm LA Volume 58.8 cm??? 18 - 58 / 22 - 52 cm??? M-MODE Aortic Root Diameter MM 3.0 cm MV E Point Septal Separation 1.1 cm AV Cusp Separation MM 1.7 cm DOPPLER AV Peak Velocity 233.4 cm/s AV Peak Gradient 21.8 mmHg AV Mean Velocity 163.0 cm/s AV Mean Gradient 12.3 mmHg AV Velocity Time Integral 56.4 cm LVOT Peak Velocity 96.4 cm/s LVOT Peak Gradient 3.7 mmHg AV Area Cont Eq pk 1.4 cm??? MV Area PHT 4.2 cm??? Mitral E Point Velocity 89.6 cm/s Mitral A Point Velocity 90.1 cm/s Mitral E to A Ratio 1.0 MV Deceleration Time 182.3 ms TR Peak Velocity 298.5 cm/s TR Peak Gradient 35.6 mmHg Right Ventricular Systolic Press 40.6 mmHg FINDINGS Left Ventricle Left ventricular ejection fraction is estimated at 40-45 %. Left ventricular cavity size normal. Mildly increased septal wall thickness. Apical septum hypokinesis. Right Ventricle Normal right ventricular size and function. Mild pulmonary hypertension. Right Atrium Normal right atrial size. Anurysmal atrial septum Left Atrium Mildly increased left atrial volume. Mildly increased left atrial area. Mitral Valve Structurally normal mitral valve. [id number] mitral regurgitation. Aortic Valve Trileaflet aortic valve. Focal thickening of the aortic valve cusps. Mild aortic stenosis with a peak gradient of 22 mmHg and a mean gradient of 12 mmHg. Tricuspid Valve Structurally normal tricuspid valve. Mild tricuspid regurgitation. Pulmonic Valve Structurally normal pulmonic valve. Trace to mild pulmonic regurgitation. Pericardium Normal pericardium. No pericardial effusion. Aorta Normal size aortic root and proximal ascending aorta. CONCLUSIONS Mild to moderate LV systolic dysfunction with an ejection fraction of 45% with apical septal hypokinesis Mild to moderate mitral regurgitation Mild aortic stenosis Aneurysmal interatrial septum Previewed by: Dr. Walt Mota MD (Electronically Signed) Final Date: 28 January 2023 09:58
[2023-01-28] MEDS ORDERED: NITROGLYCERIN SL TABS 0.4 MG TAB SUBLINGUAL PRN (10:11)
[2023-01-28] MEDS ORDERED: ALPRAZolam 0.25 MG TAB PO PRN (10:11)
[2023-01-28] MEDS ORDERED: ALPRAZolam 0.5 MG TAB PO PRN (10:11)
[2023-01-28 10:24] LABS: Monocytes # (M) 0.65 k/uL (0-1.0); Neutrophils # (M) 3.55 k/uL (1.3-7.7); Neutrophils % (M) 71 %; Nucleated Red Blood Cells 0 /100 WBC (0-0); Total Cells Counted 100
[2023-01-28] MEDS: SODIUM CHLORIDE 0.9% 1,000 ML in EMPTY BAG 1 BAG IV SCH (14:43)
--- NOTE | 2023-01-28 19:16 | P.PN ---
Subjective Progress Note Date: 01/28/23 Late entry, patient was seen and fully evaluated at bedside this morning around 9:20 AM. Hospital course: Patient is a very pleasant 77-year-old female with a past medical history of hypertension, aortic stenosis, seizure disorder, and osteoarthritis. She presented to the emergency department secondary to a chief complaint of chest pain. Patient reported sudden onset chest pain at rest. Patient reports she was initially just watching television and she got up to go watch the birds and felt pain accompanied by palpitations to her midsternal chest. Patient describes this pain as a tightness that radiated into her jaw. She states that she follows with glove wrapper, Dr. Browning for aortic stenosis and denies ever feeling pain in her chest like this in the past. Patient underwent full evaluation in the emergency department.. Labs completed and reviewed. CBC unremarkable. Coagulation profile revealing low PTT of 21.3 and elevated d- dimer 1.01. BMP revealing hyponatremia with sodium 134 and elevated BUN of 22. Initial troponin negative at less than 0.012. ProBNP 241. EKG completed showing normal sinus rhythm with a first-degree AV block with MO interval of 210 ms, no noted T-wave or ST abnormalities upon personal review and interpretation. Chest x-ray completed negative for acute cardiopulmonary process showing persistent cardiomegaly. CTA chest completed secondary to elevated d-dimer ruling out pulmonary emboli resulting negative for PE, thoracic aortic injury or dissection, and lung findings consistent with hypoinflation versus mild pulmonary edema. Patient was admitted under our services to observation unit with telemetry and cardiology was consulted. Repeat troponin increasing from less than 0.012 up to 0.733. Order placed for stat EKG which revealed normal sinus rhythm at 70 bpm with occasional PVCs and no noted T-wave or ST abnormalities are no signs of acute ischemia upon personal review and interpretation. Patient was given aspirin 324 mg by mouth 1 dose and started on heparin infusion. Cardiology notified and plans to take patient for cardiac cath tomorrow morning. Physical exam: Vital signs reviewed and stable. General: Nontoxic, no distress and appears stated age. Derm: Skin warm and dry, normal coloration for ethnicity. Head: Atraumatic, normocephalic and symmetric. Eyes: EOMs intact, no lid lag, and anicteric sclera Mouth: no lip lesions, mucus membranes moist Cardiovascular: regular rate and rhythm with normal S1S2, no murmur, positive posterior tibial pulses bilaterally, and cap refill < 2 seconds. Lungs: Respirations even, regular, and unlabored on room air. Lungs CTA bilaterally, no rhonchi, no rales, no wheezing, and no accessory muscle usage. Abdominal: soft, nontender to palpation, no guarding, no appreciable organomegaly Ext: ROM intact. No gross muscle atrophy, no edema, no contractures Neuro: Speech clear, face symmetrical and CN II-XII grossly intact with no noted focal neuro deficits Psych: Alert and oriented to person, place, time, and situation. Appropriate and pleasant affect. Assessment and Plan of Care: NSTEMI Chest pain Hypertension -Cardiology following, plans to take patient for cardiac cath tomorrow morning. -Patient to remain on continuous Telemetry monitoring -Troponins trended initial troponin less than 0.012 with repeat troponin of 0.733. -Lipid profile showing elevated cholesterol of 222.0 and LDL of 147.8. -Cardiac diet, NPO at midnight -Patient given aspirin 324 mg by mouth 1 dose and started on aspirin 81 mg daily and atorvastatin 40 mg daily -Patient started on heparin infusion. -Echocardiogram revealing an EF of 45% with [id number] mitral reg urgitation, mild aortic stenosis, and aneurysmal intra-atrial septum CODE STATUS: Full code DVT prophylaxis: Heparin Discussed with: Patient, patient's , RN, and cardiology Anticipated discharge date: Clinical course to determine Anticipated discharge place: Home Patient was seen independently by Nurse Pracitioner. This document was prepared using [employer] dictation software. Please allow for errors in dialysis chief equipment technician, while rare they do occur. I reviewed the documentation as provided by the ANNABELLE above, who is the original author of this note. I agree with the documented assessment and plan, with the following changes: none Objective - Vital Signs Vital signs: Vital Signs Temp 98.2 F 01/28/23 15:32 Pulse 81 01/28/23 15:32 Resp 16 01/28/23 15:32 BP 141/72 01/28/23 15:32 Pulse Ox 96 01/28/23 15:32 FiO2 Intake & Output 01/28/23 01/28/23 01/29/23 06:59 18:59 06:59 Intake Total 169.606 Balance 169.606 Weight 70.307 kg Intake: Intake, IV Titration 51.606 Amount Heparin Sod,Pork in 0.45% 51.606 NaCl 25,000 unit In 0.45 % NaCl 1 250ml.bag @ 12 UNITS/KG/HR 8.437 mls/hr IV .Q24H [facility] Rx#: [id number] Oral 118 Other: # Voids 1 1 - Labs CBC & Chem 7: 01/28/23 08:40 01/27/23 23:20 Labs: Abnormal Lab Results - Last 24 Hours (Table) 01/27/23 01/27/23 01/28/23 Range/Units 23:20 23:20 05:47 Lymphocytes # (Manual) (1.0-4.8) k/uL APTT 21.3 L (22.0-30.0) sec D-Dimer 1.01 H (<0.60) mg/L FEU Sodium 134 L (137-145) mmol/L BUN 22 H (7-17) mg/dL Glucose 168 H (74-99) mg/dL Troponin I (0.000-0.034) ng/mL Cholesterol 222.00 H (0.00-200.00) mg/dL LDL Cholesterol, Calc 147.8 H (0.0-131.0) mg/dL HDL Cholesterol 62.80 H (40.00-60.00) mg/dL 01/28/23 01/28/23 01/28/23 Range/Units 06:25 08:40 13:32 Lymphocytes # (Manual) 0.80 L (1.0-4.8) k/uL APTT 41.7 H (22.0-30.0) sec D-Dimer (<0.60) mg/L FEU Sodium (137-145) mmol/L BUN (7-17) mg/dL Glucose (74-99) mg/dL Troponin I 0.733 H* (0.000-0.034) ng/mL Cholesterol (0.00-200.00) mg/dL LDL Cholesterol, Calc (0.0-131.0) mg/dL HDL Cholesterol (40.00-60.00) mg/dL 01/28/23 Range/Units 18:32 Lymphocytes # (Manual) (1.0-4.8) k/uL APTT 54.5 H (22.0-30.0) sec D-Dimer (<0.60) mg/L FEU Sodium (137-145) mmol/L BUN (7-17) mg/dL Glucose (74-99) mg/dL Troponin I (0.000-0.034) ng/mL Cholesterol (0.00-200.00) mg/dL LDL Cholesterol, Calc (0.0-131.0) mg/dL HDL Cholesterol (40.00-60.00) mg/dL
[2023-01-29] MEDS: SODIUM CHLORIDE 0.9% 1,000 ML in EMPTY BAG 1 BAG IV SCH (01:07)
[2023-01-29] MEDS ORDERED: HEPARIN SODIUM,PORCINE 10,000 UNIT in SODIUM CHLORIDE 0.9% 1,000 ML IRRIGATION PRN (07:00)
[2023-01-29] MEDS ORDERED: HEPARIN SODIUM,PORCINE 2,500 UNIT in SODIUM CHLORIDE 0.9% 250 ML IRRIGATION PRN (07:00)
[2023-01-29] MEDS: ASPIRIN 81 MG PO SCH (08:44)
[2023-01-29] MEDS: amLODIPine 5 MG TAB PO SCH (08:44)
[2023-01-29] MEDS: ATORVASTATIN 40 MG TAB PO SCH (08:44)
[2023-01-29 08:58] LABS: Basophils # (A) 0.02 X 10*3/uL (0.00-0.10); Basophils % (A) 0.5 %; Eosinophils # (A) 0.46 X 10*3/uL (0.04-0.35); Immature Grans, Automated 0 %; Lymphocytes # (A) 1.58 X 10*3/uL (0.90-5.00); Lymphocytes % (A) 37.7 %; MCH 31.7 pg (27.0-32.0); MCHC 32.4 g/dL (32.0-37.0); MCV 97.6 fL (80.0-97.0); Mean Platelet Volume 11.4 fL (9.5-12.2); Monocytes # (A) 0.45 X 10*3/uL (0.20-1.00); Monocytes % (A) 10.7 %; NRBC Per 100 WBC 0 /100 WBCS (0.0-0.0); Neutrophils # (A) 1.68 X 10*3/uL (1.80-7.70); Neutrophils % (A) 40.1 %; Platelet Count 166 X 10*3/uL (140-440); RBC 3.79 X 10*6/uL (4.10-5.20); RDW 13.3 % (11.5-14.5); WBC 4.19 X 10*3/uL (4.50-10.00)
[2023-01-29 10:16] LABS: INR 1.01 (0.90-1.11); Prothrombin Time 11.4 sec (9.9-11.9)
[2023-01-29] MEDS: HEPARIN SOD,PORK IN 0.45% NACL 25,000 UNIT in 0.45% NACL 1 250ML.BAG IV SCH (10:34)
[2023-01-29 11:39] LABS: African American GFR (CKD) 98.2 (60.0-200.0); Anion Gap 7.7 mmol/L (10.00-18.00); BUN/Creat Ratio 17.06 Ratio (12.00-20.00); Blood Urea Nitrogen 11.7 mg/dL (9.0-27.0); Calcium 9.1 mg/dL (8.7-10.3); Carbon Dioxide 24.8 mmol/L (20.0-27.5); Non-African American GFR(CKD) 84.7 (60.0-200.0); Potassium 4.2 mmol/L (3.5-5.5)
[2023-01-29] MEDS ORDERED: LIDOCAINE 1% INJ 10MG/ML (5 ML VIAL-PF) SQ ONE (12:51)
[2023-01-29] MEDS ORDERED: MIDAZOLAM 2 MG/2 ML VIAL IV ONE (12:51)
[2023-01-29] MEDS ORDERED: VERAPAMIL SYRINGE (5 MG/10 ML) INTRAARTER ONE (12:53)
[2023-01-29] MEDS: HEPARIN SODIUM 1,000 UN/ML (10ML VL) IV ONE ×3 (12:54→13:27)
[2023-01-29] MEDS ORDERED: IV FLUID CONTINUATION 250 ML IV ONE (12:55)
[2023-01-29] MEDS ORDERED: TICAGRELOR 90 MG TAB ONE (13:05)
[2023-01-29] MEDS ORDERED: TICAGRELOR 90 MG TAB PO ONE (13:06)
[2023-01-29] MEDS ORDERED: ZOLPIDEM 5 MG TAB PO PRN (13:27)
[2023-01-29] MEDS ORDERED: ATROPINE SULFATE 0.1 MG/ML 10ML SYRINGE IV PRN (13:27)
[2023-01-29] MEDS ORDERED: MAG HYDROX/AL HYDROX/SIMETH 30 ML CUP PO PRN (13:27)
[2023-01-29] MEDS ORDERED: RX INFO: IV CONTRAST WAS GIVEN 1 EACH MISC MISCELLANE PRN (13:27)
[2023-01-29] MEDS ORDERED: IOPAMIDOL-370 100ML BTL INJ ONE (13:28)
--- NOTE | 2023-01-29 15:54 | P.PN ---
Subjective Progress Note Date: 01/29/23 Hospital course: Patient is a very pleasant 77-year-old female with a past medical history of hypertension, aortic stenosis, seizure disorder, and osteoarthritis. She presented to the emergency department secondary to a chief complaint of chest pain. Patient reported sudden onset chest pain at rest. Patient reports she was initially just watching television and she got up to go watch the birds and felt pain accompanied by palpitations to her midsternal chest. Patient describe s this pain as a tightness that radiated into her jaw. She states that she follows with tab cutting machine operator, Dr. Browning for aortic stenosis and denies ever feeling pain in her chest like this in the past. Patient underwent full evaluation in the emergency department.. Labs completed and reviewed. CBC unremarkable. Coagulation profile revealing low PTT of 21.3 and elevated d-dimer 1.01. BMP revealing hyponatremia with sodium 134 and elevated BUN of 22. Initial troponin negative at less than 0.012. ProBNP 241. EKG completed showing normal sinus rhythm with a first-degree AV block with DC interval of 210 ms, no noted T-wave or ST abnormalities upon personal review and interpretation. Chest x-ray completed negative for acute cardiopulmonary process showing persistent cardiomegaly. CTA chest completed secondary to elevated d-dimer ruling out pulmonary emboli resulting negative for PE, thoracic aortic injury or dissection, and lung findings consistent with hypoinflation versus mild pulmonary edema. Patient was admitted under our services to observation unit with telemetry and cardiology was consulted. Repeat troponin increasing from less than 0.012 up to 0.733. Order placed for stat EKG which revealed normal sinus rhythm at 70 bpm with occasional PVCs and no noted T-wave or ST abnor malities are no signs of acute ischemia upon personal review and interpretation. Patient was given aspirin 324 mg by mouth 1 dose and started on heparin infusion. Echocardiogram revealing an EF of 45% with [id number] mitral regurgitation, mild aortic stenosis, and aneurysmal intra-atrial septum. Patient scheduled to undergo cardiac cath later today. Physical exam: Patient seen and fully evaluated at bedside this morning. She was preparing to be taken down for cardiac cath. Currently she denies having any chest pain, shortness of breath, palpitations, dizziness, lightheadedness, or experiencing any other complaints. Vital signs reviewed and stable. General: Nontoxic, no distress and appears stated age. Derm: Skin warm and dry, normal coloration for ethnicity. Head: Atraumatic, normocephalic and symmetric. Eyes: EOMs intact, no lid lag, and anicteric sclera Mouth: no lip lesions, mucus membranes moist Cardiovascular: regular rate and rhythm with normal S1S2, systolic murmur, positive posterior tibial pulses bilaterally, and cap refill < 2 seconds. Lungs: Respirations even, regular, and unlabored on room air. Lungs CTA bilaterally, no rhonchi, no rales, no wheezing, and no accessory muscle usage. Abdominal: soft, nontender to palpation, no guarding, no appreciable organomegaly Ext: ROM intact. No gross muscle atrophy, no edema, no contractures Neuro: Speech clear, face symmetrical and CN II-XII grossly intact with no noted focal neuro deficits Psych: Alert and oriented to person, place, time, and situation. Appropriate and pleasant affect. Assessment and Plan of Care: NSTEMI Chest pain Hypertension -Cardiology following, taking patient for cardiac cath later today. -Patient to remain on continuous Telemetry monitoring -Troponins trended initial troponin less than 0.012 with repeat troponin of 0.733. -Lipid profile showing elevated cholesterol of 222.0 and LDL of 147.8. -NPO until completion of cardiac cath and may resume cardiac diet. -Continue aspirin 81 mg daily and atorvastatin 40 mg daily -Continue heparin infusion until further directed by tab cutting machine operator, PTT therapeutic at 56.4 this morning -Echocardiogram revealing an EF of 45% with feei-ty-sqozeozy mitral regurgitation, mild aortic stenosis, and aneurysmal intra-atrial septum CODE STATUS: Full code DVT prophylaxis: Heparin Discussed with: Patient, patient's , RN, and cardiology Anticipated discharge date: Clinical course to determine Anticipated discharge place: Home Patient was seen independently by Nurse Pracitioner. This document was prepared using [employer] dictation software. Please allow for errors in motor vehicle or caravan salesperson, while rare they do occur. I reviewed the documentation as provided by the ANNABELLE above, who is the original author of this note. I agree with the documented assessment and plan, with the following changes: none Objective - Vital Signs Vital signs: Vital Signs Temp 97.5 F L 01/29/23 08:00 Pulse 67 01/29/23 08:00 Resp 16 01/29/23 08:00 BP 123/71 01/29/23 08:00 Pulse Ox 94 L 01/29/23 08:00 FiO2 Intake & Output 01/28/23 01/29/23 01/29/23 18:59 06:59 18:59 Intake Total 169.606 Balance 169.606 Intake: Intake, IV Titration 51.606 Amount Heparin Sod,Pork in 0.45% 51.606 NaCl 25,000 unit In 0.45 % NaCl 1 250ml.bag @ 12 UNITS/KG/HR 8.437 mls/hr IV .Q24H [facility] Rx#: [id number] Oral 118 Other: Voiding Method Toilet # Voids 1 2 - Labs CBC & Chem 7: 01/29/23 06:07 01/29/23 06:07 Labs: Abnormal Lab Results - Last 24 Hours (Table) 01/28/23 01/28/23 01/28/23 Range/Units 05:47 08:40 13:32 Lymphocytes # (Manual) 0.80 L (1.0-4.8) k/uL APTT 41.7 H (22.0-30.0) sec Cholesterol 222.00 H (0.00-200.00) mg/dL LDL Cholesterol, Calc 147.8 H (0.0-131.0) mg/dL HDL Cholesterol 62.80 H (40.00-60.00) mg/dL 01/28/23 01/29/23 Range/Units 18:32 06:07 Lymphocytes # (Manual) (1.0-4.8) k/uL APTT 54.5 H 56.4 H (22.0-30.0) sec Cholesterol (0.00-200.00) mg/dL LDL Cholesterol, Calc (0.0-131.0) mg/dL HDL Cholesterol (40.00-60.00) mg/dL
--- NOTE | 2023-01-29 18:39 | P.PCN ---
Date of Procedure: 01/29/23 Operative Findings: CARDIAC CATHETERIZATION AND PERCUTANEOUS CORONARY INTERVENTION PERFORMING PHYSICIAN: Joshua Browning MD, [facility] PROCEDURE PERFORMED: 1. Selective right and left coronary angiogram 2. Successful stenting of proximal LAD using 3.0 x 23 mm Xience ANNABELLE with an excellent angiographic results 3. Adjunctive use of intracoronary imaging 4. Ultrasound guided access of the right radial artery INDICATION: Acute non-ST elevation myocardial infarction COMPLICATION: None APPROACH: Right radial artery LEVEL OF SEDATION: Moderate with the sedation time off 34 minutes PROCEDURE DESCRIPTION: After obtaining an informed consent the patient was brought to the cardiac lab aide. The right radial artery was cannulated using micropuncture technique under ultrasound guidance, the micropuncture wire passed easily then I placed a 6-Everette nch sheath at the right radial artery. I gave the patient 2 mg of verapamil intra-arterial and subsequently 3000 use of heparin intravenous. Additional 2000 use of heparin giving throughout the procedure with continuous ACT monitoring. Selective right and left coronary angiogram performed using JR4 and JL 3.5 catheters. After that I did intervene on the left anterior descending artery. The procedure was completed was no complication SELECTIVE CORONARY ANGIOGRAM: The right coronary artery: Moderate caliber vessel and nondominant vessel and appears to be angiographically normal Left main: Short but angiographically normal left main. Bifurcates into a dominant left circumflex and left anterior descending artery The left circumflex: Large caliber vessel and a dominant vessel. The LCx system appears to have only mild disease. The left anterior descending artery: Proximal LAD appears to have a critical lesion appears to be in the range of 80%. The proximal LAD is calcified. The mid LAD has only [id number] disease only. The LAD distally appears to be angiographically normal PCI OF THE LAD: Anticoagulation was initiated using heparin with continuous ACT monitoring as described above. Using a JL 3.5 short tip guiding catheter in the left main was engaged. After that I did wire the LAD using a whisper wire. Intravascular ultrasound was performed and showed a diameter of the LAD around 3.25 mm with eccentric calcification. At that point I predilated the LAD using 2.5 mm balloon. After that I deployed a 3.0 x 23 mm stent where the stent was positioned under fluoroscopy guidance and deployed under 14 nata for 20 seconds with postdilatation was performed using initially 3.5 x 15 mm noncompliant balloon but the balloon would not cross the stented segment for that reason I used a 3.25 x 15 mm see my compliant balloon which was inflated under 14 nata for 20 seconds with the following angiogram showing excellent angiographic results was ZANDER-3 flow and the procedure was completed was no complication CONCLUSION: Acute non-ST elevation myocardial infarction Critical disease involving the proximal LAD. Successful stenting of the LAD was performed POSTPROCEDURE MANAGEMENT: 1. Dual antiplatelet therapy using aspirin and Brilinta for 12 month 2. Aggressive cholesterol control 3. Follow-up with the patient
[2023-01-29] MEDS: TICAGRELOR 90 MG TAB PO SCH (20:23)
[2023-01-29] MEDS ORDERED: ACETAMINOPHEN TAB 325 MG TAB PO PRN (20:31)
[2023-01-30 06:44] LABS: Basophils % (A) 1 %; Eosinophils # (A) 0.4 k/uL (0-0.7); Eosinophils % (A) 9 %; HCT 40.5 % (34.0-46.0); HGB 13.3 gm/dL (11.4-16.0); Lymphocytes # (A) 1.1 k/uL (1.0-4.8); Lymphocytes % (A) 23 %; MCH 32.4 pg (25.0-35.0); MCHC 32.9 g/dL (31.0-37.0); MCV 98.6 fL (80.0-100.0); Mean Platelet Volume 8.3; Monocytes # (A) 0.4 k/uL (0-1.0); Monocytes % (A) 8 %; Neutrophils # (A) 2.8 k/uL (1.3-7.7); Neutrophils % (A) 57 %; Platelet Count 172 k/uL (150-450); RBC 4.11 m/uL (3.80-5.40); RDW 12.9 % (11.5-15.5); WBC 4.9 k/uL (3.8-10.6)
[2023-01-30 07:00] LABS: African American GFR (CKD) >90 (>60 ml/min/1.73 sqM); Anion Gap 7 mmol/L; Blood Urea Nitrogen 13 mg/dL (7-17); Calcium 9.5 mg/dL (8.4-10.2); Carbon Dioxide 25 mmol/L (22-30); Chloride 106 mmol/L (98-107); Glucose 120 mg/dL (74-99); Non-African American GFR(CKD) 83 (>60 ml/min/1.73 sqM); Potassium 3.8 mmol/L (3.5-5.1); Sodium 138 mmol/L (137-145)
[2023-01-30] MEDS: amLODIPine 5 MG TAB PO SCH (08:05)
[2023-01-30] MEDS: TICAGRELOR 90 MG TAB PO SCH (08:05)
[2023-01-30] MEDS: ASPIRIN 81 MG PO SCH (08:05)
[2023-01-30] MEDS: ATORVASTATIN 40 MG TAB PO SCH (08:05)
[2023-01-30] MEDS ORDERED: METOPROLOL TARTRATE 12.5 MG TAB PO SCH (09:00)
[2023-01-30 09:13] VITALS: BP 149/72; PULSE 73; RESP 16; TEMP 97.8
[2023-01-30 11:41] VITALS: BMI 24.3
--- NOTE | 2023-01-30 12:11 | P.PN ---
Subjective Progress Note Date: 01/30/23 Principal diagnosis: NSTEMI This is a pleasant 77-year-old female patient who follows in the office with Dr. Browning. She has a known history of aortic stenosis. She presented to the hospital with complaints of palpitations and chest discomfort. Troponin came back to be elevated at 0.733. Echocardiogram with Doppler study showed ejection fraction of 40-45% with mild to moderate MR and mild ES. She subsequently underwent cardiac catheterization with stenting of the LAD done by Dr. Browning yesterday. She is overall feeling quite a bit better. She's had no further chest discomfort or palpitations. Her breathing is stable. She has no edema, orthopnea or PND. Renal function is stable. Vital signs of an stable. She is on dual antiplatelet therapy and statin. Objective - Vital Signs Vital signs: Vital Signs Temp 97.8 F 01/30/23 08:00 Pulse 73 01/30/23 08:00 Resp 16 01/30/23 08:05 BP 149/72 01/30/23 08:00 Pulse Ox 98 01/30/23 08:00 FiO2 Intake & Output 01/29/23 01/30/23 01/30/23 18:59 06:59 18:59 Intake Total 220 Balance 220 Weight 70.307 kg Intake: IV 100 Oral 120 Other: Voiding Method Toilet Toilet Toilet # Voids 1 2 - Exam PHYSICAL EXAMINATION: HEENT: Head is atraumatic, normocephalic. Pupils equal, round. Neck is supple. There is no elevated jugular venous pressure. HEART EXAMINATION: Heart sounds regular, S1 and S2 normal. With a grade 2/6 systolic ejection murmur at the base. CHEST EXAMINATION: Lungs are clear to auscultation and precussion. No chest wall tenderness is noted on palpation or with deep breathing. ABDOMEN: Soft, nontender. Bowel sounds are heard. No organomegaly noted. EXTREMITIES: 2+ peripheral pulses with no evidence of peripheral edema and no calf tenderness noted. Right radial puncture site with the dressing dry and intact, pulse palpable, ecchymosis noted but no hematoma. NEUROLOGIC patient is awake, alert and oriented x3. . - Labs CBC & Chem 7: 01/30/23 06:13 01/30/23 06:13 Labs: Abnormal Lab Results - Last 24 Hours (Table) 06/03/23 Range/Units 06:13 Glucose 120 H (74-99) mg/dL Assessment and Plan Assessment: #1. Non-ST elevation SC, status post stenting of the LAD #2 mild aortic stenosis #3 cardiomyopathy, ischemic #4 hyperlipidemia 5 hypertension Plan: From cardiology perspective patient may be discharged home and follow-up with Dr. Browning in about a week. Continue dual antiplatelet therapy, beta yuridia and statin. CARDIAC MONITOR TECHNICIAN note has been reviewed, I agree with a documented findings and plan of care. Patient was seen and examined.
--- NOTE | 2023-01-30 13:36 | P.DS ---
Providers Date of admission: 01/28/23 12:56 Expected date of discharge: 01/30/23 Attending physician: Pan Lopez MD Consults: 01/28/23 02:44 Consult Physician Routine Consulting Provider: Rik Diaz Consult Reason/Comments: CP r/o ACS Do you want consulting provider notified?: Yes, Notify in am 01/29/23 13:27 Consult Physician Routine Consulting Provider: Cardiology Emily Consult Reason/Comments: Post Interventional patient Do you want consulting provider notified?: Already Contacted Primary care physician: Barber Roman MD Hospital Course: Discharge Diagnosis: NSTEMI Chest pain Hypertension Aortic stenosis Seizure disorder Osteoarthritis Hospital Course: Patient is a very pleasant 77-year-old female with a past medical history of hypertension, aortic stenosis, seizure disorder, and osteoarthritis. She presented to the emergency department secondary to a chief complaint of chest pain. Patient reported sudden onset chest pain at rest. Patient reports she was initially just watching television and she got up to go watch the birds and felt pain accompanied by palpitations to her midsternal chest. Patient describes this pain as a tightness that radiated into her jaw. She states that she follows with hospital medicine director, Dr. Browning for aortic stenosis and denies ever feeling pain in her chest like this in the past. Patient underwent full evaluation in the emergency department.. Labs completed and reviewed. CBC unremarkable. Coagulation profile revealing low PTT of 21.3 and elevated d- dimer 1.01. BMP revealing hyponatremia with sodium 134 and elevated BUN of 22. Initial troponin negative at less than 0.012. ProBNP 241. EKG completed showing normal sinus rhythm with a first-degree AV block with MD interval of 210 ms, no noted T-wave or ST abnormalities upon personal review and interpretation. Chest x-ray completed negative for acute cardiopulmonary process showing persistent cardiomegaly. CTA chest completed secondary to elevated d-dimer ruling out pulmonary emboli resulting negative for PE, thoracic aortic injury or dissectio n, and lung findings consistent with hypoinflation versus mild pulmonary edema. Patient was admitted under our services to observation unit with telemetry and cardiology was consulted. Repeat troponin increasing from less than 0.012 up to 0.733. Order placed for stat EKG which revealed normal sinus rhythm at 70 bpm with occasional PVCs and no noted T-wave or ST abnormalities are no signs of acu te ischemia upon personal review and interpretation. Patient was given aspirin 324 mg by mouth 1 dose and started on heparin infusion. Echocardiogram revealing an EF of 45% with [id number] mitral regurgitation, mild aortic stenosis, and aneurysmal intra-atrial septum. Patient underwent cardiac cath on 01/29/23 resulting in successful stenting of LAD. Patient started on dual antiplatelet therapy with aspirin and Plavix. She was monitored overnight. Patient free from any further episodes of chest pain/discomfort. She does have mild bruising noted to right wrist surrounding cardiac cath site. No hematoma and no active bleeding. Patient denies having any numbness/tingling/weakness in her right hand and has full range of motion with wrist and hand. Physical exam: Vital signs reviewed and stable. General: Nontoxic, no distress and appears stated age. Derm: Skin warm and dry, normal coloration for ethnicity. Head: Atraumatic, normocephalic and symmetric. Eyes: EOMs intact, no lid lag, and anicteric sclera Mouth: no lip lesions, mucus membranes moist Cardiovascular: regular rate and rhythm with normal S1S2, systolic murmur, pos itive posterior tibial pulses bilaterally, and cap refill < 2 seconds. Lungs: Respirations even, regular, and unlabored on room air. Lungs CTA bilaterally, no rhonchi, no rales, no wheezing, and no accessory muscle usage. Abdominal: soft, nontender to palpation, no guarding, no appreciable organomegaly Ext: ROM intact. No gross muscle atrophy, no edema, no contractures Neuro: Speech clear, face symmetrical and CN II-XII grossly intact with no noted focal neuro deficits Psych: Alert and oriented to person, place, time, and situation. Appropriate and pleasant affect. A total of 32 minutes of time were spent preparing this complex discharge summary. Pt was discharged on 01/30/23 at 1:23 PM. Patient was seen independently by Nurse Practitioner. This document was prepared using [employer] dictation software. Please allow for errors in hotel houseman while rare they do occur. I reviewed the documentation as provided by the ANNABELLE above, who is the original author of this note. I agree with the documented assessment and plan, with the following changes: none Patient Condition at Discharge: Stable Plan - Discharge Summary Discharge Rx Participant: Yes New Discharge Prescriptions: New Atorvastatin [Lipitor] 40 mg PO DAILY 30 Days #30 tab Metoprolol Tartrate [Lopressor] 12.5 mg PO DAILY 30 Days #30 tab amLODIPine [Norvasc] 5 mg PO DAILY 30 Days #30 tab Ticagrelor [Brilinta] 90 mg PO BID 30 Days #60 tab Continue Aspirin 81 mg PO DAILY Discharge Medication List Aspirin 81 mg PO DAILY 11/12/16 [History] Atorvastatin [Lipitor] 40 mg PO DAILY 30 Days #30 tab 01/30/23 [Rx] Metoprolol Tartrate [Lopressor] 12.5 mg PO DAILY 30 Days #30 tab 01/30/23 [Rx] Ticagrelor [Brilinta] 90 mg PO BID 30 Days #60 tab 01/30/23 [Rx] amLODIPine [Norvasc] 5 mg PO DAILY 30 Days #30 tab 01/30/23 [Rx] Follow up Appointment(s)/Referral(s): Joshua Browning MD [STAFF PHYSICIAN] - 1 Week Barber Roman MD [Primary Care Provider] - 1-2 days Patient Instructions/Handouts: Chest Pain (ED) Activity/Diet/Wound Care/Special Instructions: NO FLEXING AT THE WRIST OR LIFTING ANYTHING HEAVIER THAN 5# FOR 5 DAYS. remove dressing over puncture site in 24 hrs and leave open to air Do not submerge in water for 3 days. If site bleeds, hold pressure for 10min if doesn't subside return to ER. Discharge Instructions After Cardiac Catheterization with Stent Placement: Aspirin as anti-platelet therapy - Aspirin lessens the chance of heart attack and stroke. It helps prevent blood clots from forming, allowing the blood to flow more easily. Each day, you will take one 81 mg (non-enteric coated) tablet daily. Do not stop unless instructed by your doctor. Anti-platelet Therapy. -In addition to aspirin, you will take one additional anti-platelet medication daily. This will help prevent a clot from forming in your stent: Ticagrelor (Brilinta) -You will need to take your anti-platelet medicine every day for 12 months -Please consult your heart doctor before you stop this medicine. -They may want you to continue for a longer period of time. Statins -A statin medication lowers cholesterol levels in the blood. This helps slow the progression of heart disease. - Please take your statin medication as prescribed by your doctor. -You may be taking one of the following statins: Atorvastatin Beta blockers Your Medication: Metoprolol Is a medication that protects your heart from stress and can prevent future heart attacks. It can slow your heart rate. It can take weeks for your body to get used to a beta yuridia. The dose may need to be changed a few times as your body adjusts Do not stop taking these medicines without talking to your doctor. -Take all other medicines as directed by your doctor. Do not take any extra aspirin or ibuprofen. They can increase your risk of bleeding. Many [id number] drugs contain aspirin. If you are unsure about what the drug contains, check with your pharmacist before taking it. -For mild discomfort, you may take plain Tylenol (acetaminophen). Follow dose directions, but do not take more than 4,000 mg of acetaminophen in 24 hours. Contact your doctor right away or go to the nearest hospital Emergency Room if you have: -Severe angina or chest pain. (This may be a sign of a problem with your stent.) -Excessive bruising, blood in urine/stool or black tarry stools. Healthy LifeStyle It is important to keep a heart healthy lifestyle. This can improve your long- term health and decrease your risk for heart attacks. -Managing your blood cholesterol, blood pressure, weight, and stress. -The importance of regular exercise. -Heart Healthy Diet: Include more plants in your diet. Eat lots of fresh vegetables and fresh fruits. Eat good fats: plant based oils, avocado, nuts, beans, legumes. Eat more seafood. Limit Meat. Switch to whole grains. -Avoid fried foods and animal fats and processed meats Follow up with your PCP, Dr. Roman and [facility] with Dr. Browning Thank you for allowing us to participate in your care, it was truly a pleasure having you for our patient!!! Discharge Disposition: HOME SELF-CARE
== END 2023-01-30 14:50 | disposition home or self-care (01) | DRG 247 ==
LOC: EC 23:11 → 6NMEDSUR 01-28 02:44 → OBSVTOIN 01-28 12:56
PROVIDERS: ADMIT Internal Medicine; ATTEND Internal Medicine
PROC: 4A023N7 Measurement of Cardiac Sampling and Pressure, Left Heart, Percutaneous Approach (ICD-10-PCS; principal; 2023-01-29 12:00)
PROC: B2111ZZ Fluoroscopy of Multiple Coronary Arteries using Low Osmolar Contrast (ICD-10-PCS; principal; 2023-01-29 12:00)
PROC: 027034Z Dilation of Coronary Artery, One Artery with Drug-eluting Intraluminal Device, Percutaneous Approach (ICD-10-PCS; principal; 2023-01-29 12:00)
PROC: B240ZZ3 Ultrasonography of Single Coronary Artery, Intravascular (ICD-10-PCS; principal; 2023-01-29 12:00)
DX: I21.4 Non-ST elevation (NSTEMI) myocardial infarction (principal); E87.1 Hypo-osmolality and hyponatremia; I25.3 Aneurysm of heart; J81.1 Chronic pulmonary edema; I10 Essential (primary) hypertension; I35.0 Nonrheumatic aortic (valve) stenosis; G40.909 Epilepsy, unspecified, not intractable, without status epilepticus; M19.90 Unspecified osteoarthritis, unspecified site; I44.0 Atrioventricular block, first degree; I35.9 Nonrheumatic aortic valve disorder, unspecified; R79.1 Abnormal coagulation profile; I25.5 Ischemic cardiomyopathy; I34.0 Nonrheumatic mitral (valve) insufficiency; F41.9 Anxiety disorder, unspecified; F32.A Depression, unspecified; E78.5 Hyperlipidemia, unspecified; Z79.82 Long term (current) use of aspirin; Z71.3 Dietary counseling and surveillance
CPT/HCPCS: 36415; 71045; 71275; 80048; 80053; 80061; 83690; 83735; 83880; 84443; 84484; 85025; 85379; 85610; 85730; 92978; 93005; 93306; 93454; 94760; 96361; 96374; 96375; 99291

== ENCOUNTER → 2023-09-30 | Outpatient (CLI) | payer MEDICARE ==
[2023-09-30 15:22] LABS: Basophils # (A) 0.07 X 10*3/uL (0.00-0.10); Basophils % (A) 1.5 %; Eosinophils # (A) 0.45 X 10*3/uL (0.04-0.35); Eosinophils % (A) 9.7 %; HGB 14.1 g/dL (12.0-15.0); Lymphocytes # (A) 1.36 X 10*3/uL (0.90-5.00); Lymphocytes % (A) 29.2 %; MCH 32.1 pg (27.0-32.0); MCHC 32.8 g/dL (32.0-37.0); MCV 97.9 FL (80.0-97.0); Mean Platelet Volume 10.9 FL (9.5-12.2); Monocytes # (A) 0.55 X 10*3/uL (0.20-1.00); Monocytes % (A) 11.8 %; NRBC Per 100 WBC 0 X 10*3/uL (0.00-0.01); Neutrophils # (A) 2.21 X 10*3/uL (1.80-7.70); Neutrophils % (A) 47.6 %; Platelet Count 211 X 10*3/uL (140-440); RBC 4.39 X 10*6/uL (4.10-5.20); RDW 13.4 % (11.5-14.5); WBC 4.65 X 10*3/uL (4.50-10.00)
[2023-09-30 15:52] LABS: ALT 17 U/L (8-44); AST 20 U/L (13-35); Albumin 4.5 g/dL (3.8-4.9); Albumin/Globulin Ratio 1.61 Ratio (1.60-3.17); Alkaline Phosphatase 87 U/L (41-126); BUN/Creat Ratio 24.11 Ratio (12.00-20.00); Blood Urea Nitrogen 21.7 mg/dL (9.0-27.0); Calcium 10.6 mg/dL (8.7-10.3); Carbon Dioxide 27.8 mmol/L (21.6-31.8); Chloride 104 mmol/L (96-109); Chol/HDL Ratio 2.66 Ratio; Globulin 2.8 g/dL (1.6-3.3); Glucose 103 mg/dL (70-110); LDL Cholesterol,Calculated 89.1 mg/dL (0.0-131.0); Potassium 4.2 mmol/L (3.5-5.5); Sodium 140 mmol/L (135-145); Total Bilirubin 0.8 mg/dL (0.3-1.2); Total Protein 7.3 g/dL (6.2-8.2)
== END | disposition home or self-care (01) ==
LOC: LABWHC1 10:33
PROVIDERS: ATTEND Family Medicine
DX: R26.89 Other abnormalities of gait and mobility (principal)
CPT/HCPCS: 36415; 80053; 80061; 82306; 82607; 84443; 85025

== ENCOUNTER → 2024-09-12 | Outpatient (CLI) | payer MEDICARE ==
[2024-09-12 20:18] LABS: ALT 13 U/L (8-44); AST 20 U/L (13-35); LDL Cholesterol,Calculated 183.5 mg/dL (0.0-131.0)
== END | disposition home or self-care (01) ==
LOC: LABWHC1 10:59
PROVIDERS: ATTEND Internal Medicine Interventional Cardiology
DX: E78.2 Mixed hyperlipidemia (principal)
CPT/HCPCS: 36415; 80061; 84450; 84460